=== PATIENT | female | born 1945 | race African-American/Black ===

== ENCOUNTER 2022-10-31 15:26 | Emergency (ER) | payer OTHER ==
[~2022-10-31] VITALS: Ht 165.1 cm; Wt 91.0 kg
[2022-10-31 15:32] VITALS: BP 153/70
== END 2022-10-31 21:10 | disposition left against medical advice (07) ==
LOC: ER 15:36
DX: M25.551 Pain in right hip (principal); I69.351 Hemiplegia and hemiparesis following cerebral infarction affecting right dominant side; I10 Essential (primary) hypertension; E11.9 Type 2 diabetes mellitus without complications; F10.10 Alcohol abuse, uncomplicated; Y90.9 Presence of alcohol in blood, level not specified; W07.XXXA Fall from chair, initial encounter; Y93.89 Activity, other specified; Y92.018 Other place in single-family (private) house as the place of occurrence of the external cause
CPT/HCPCS: 99283